=== PATIENT | female | born 1940 | race Hispanic/Latino ===

== ENCOUNTER 2016-10-09 00:53 | Inpatient (IN) | payer MEDICARE, BC ==
[2016-10-09 01:23] VITALS: BMI 25.0
[2016-10-09] MEDS ORDERED: Iohexol 240 (50 ml) PO STA (01:46)
[2016-10-09 02:56] LABS: BASO % 0.4 % (0.0-2.0); EOS # 0.2 K/uL (0.0-0.7); EOS % 3.2 % (0.0-4.0); HEMOGLOBIN 12.4 g/dL (12.0-16.0); LYMPH # 1.5 K/uL (1.0-4.3); LYMPH % 21.7 % (20.0-40.0); MEAN CELL VOLUME 87.3 fl (81.0-99.0); MEAN CORPUSCULAR HEMOGLOBIN 28.2 pg (27.0-31.0); MEAN CORPUSCULAR HGB CONC 32.3 g/dL (33.0-37.0); MEAN PLATELET VOLUME 8.4 fl (7.2-11.7); MONO # 0.6 K/uL (0.0-0.8); MONO % 8.6 % (0.0-10.0); NEUT # 4.6 K/uL (1.8-7.0); NEUT % 66.1 % (50.0-75.0); NRBC % 0.1 % (0.0-0.0); RBC 4.41 Mil/uL (3.80-5.20); RED CELL DISTRIBUTION WIDTH 15.2 % (11.5-14.5)
[2016-10-09] MEDS ORDERED: Iohexol 240 (50 ml) ONE (03:00)
--- NOTE | 2016-10-09 03:01 | ED PDOC ---
HPI: Psych/Substance Abuse Time Seen by Provider: 10/09/16 01:28 Chief Complaint (Nursing): Psychiatric Evaluation Chief Complaint (Provider): Psychiatric Evaluation History Per: Patient History/Exam Limitations: no limitations Current Symptoms Are (Timing): Still Present Suicide/Self Injury Attempted (Context): None Modifying Factor(s): None Associated Symptoms: Anxiety Additional History Per: Intermediate Additional Complaint(s): 76 year old female [facility] presents to ED for a psychiatric evaluation and has a past medical history of hypercholesterolemia, HTN, DM, hypothyroidism, and an extensive psychiatric history. long-term notes that patient was originally sent to [facility]), where she was medically cleared. Patient states that she has anxiety about her childhood and complains of abdominal pain. PCP: LUL Past Medical History Reviewed: Historical Data, Nursing Documentation, Vital Signs Vital Signs: Last Vital Signs Temp 98.2 F 10/09/16 01:23 Pulse 62 10/09/16 01:23 Resp 18 10/09/16 01:23 BP 165/74 H 10/09/16 01:23 Pulse Ox 95 10/09/16 01:23 - Medical History PMH: Anxiety, Bipolar Disorder, Depression, HTN, Hypercholesterolemia, Hyperlipidemia, Hypothyroidism, Kidney Stones, Chronic Kidney Disease Denies: No Chronic Diseases, Alzheimer's Disease, Anemia, Arthritis, Asthma, Bronchitis, Cardia Arrhythmia, CHF, COPD, Crohn's Disease, Dementia, Diabetes, Diverticulitis, Emphysema, Fibromyalgia, Fractures, Gastrointestinal Ulcer, Gall Bladder Disease, Hepatitis, HIV, Hyperthyroidism, Migraine, Mitral Valve Prolapse, Osteoporosis, Pancreatitis, Paranoia, Parkinson's Disease, Peripheral Edema, Pneumonia, Post Traumatic Stress Disorder, Rheumatoid Arthritis, Schizophrenia, Seizures, Sickle Cell Disease, Sexually Transmitted Disease, Sleep Apnea, TIA - Surgical History Surgical History: Appendectomy, Cholecystectomy Denies: Coronary Stent, Pacemaker - Family History Family History: States: No Known Family Hx - Social History Current smoker - smoking cessation education provided: No Alcohol: None Drugs: Denies - Immunization History Hx Tetanus Toxoid Vaccination: No - Home Medications Home Medications: Ambulatory Orders Medication Instructions Recorded Atorvastatin [Lipitor] 20 mg PO DAILY #14 tab 12/21/14 Levothyroxine [Synthroid] 125 mcg PO ACB 03/06/15 Benztropine [Cogentin] 1 tab PO BID 07/20/16 Dextran 70/Hypromellose 2 drop BOTHEYES BID 07/20/16 [Artificial Tears] FLUoxetine [Prozac] 1 cap PO DAILY 07/20/16 Lisinopril [Zestril] 1 tab PO DAILY 07/20/16 OLANZapine [Zyprexa] 1 tab PO DAILY 07/20/16 Pantoprazole [Protonix] 40 mg PO BID #35 ect 07/24/16 - Allergies Allergies/Adverse Reactions: Allergies Allergy/AdvReac Type Severity Reaction Status Date / Time codeine Allergy RASH Verified 04/05/15 06:07 Review of Systems ROS Statement: Except As Marked, All Systems Reviewed And Found Negative Gastrointestinal: Positive for: Abdominal Pain Psych: Positive for: Anxiety Physical Exam - Reviewed Nursing Documentation Reviewed: Yes Vital Signs Reviewed: Yes - Physical Exam Appears: Positive for: Non-toxic, No Acute Distress Head Exam: Positive for: ATRAUMATIC, NORMOCEPHALIC Skin: Positive for: Normal Color, Warm, Dry Eye Exam: Positive for: Normal appearance, EOMI, PERRL ENT: Positive for: Normal ENT Inspection Neck: Positive for: Normal, Painless ROM, Supple Cardiovascular/Chest: Positive for: Regular Rate, Rhythm. Negative for: Murmur Respiratory: Positive for: Normal Breath Sounds. Negative for: Respiratory Distress Gastrointestinal/Abdominal: Positive for: Soft, Tenderness (Minimal diffuse TTP ), Distended. Negative for: Normal Exam Back: Positive for: Normal Inspection Extremity: Positive for: Normal ROM. Negative for: Deformity Neurologic/Psych: Positive for: Alert, Oriented. Negative for: Motor/Sensory Deficits - Laboratory Results Result Diagrams: 10/09/16 02:07 10/09/16 02:07 - ECG O2 Sat by Pulse Oximetry: 95 (RA) Pulse Ox Interpretation: Normal Medical Decision Making Medical Decision Makin Initial impression: psychiatric eval with abdominal pain Rule out diverticulitis v colitis v volvulus Initial plan: * CTA A/P * Labs * Lact acid * Iohexol 50mL PO * UCx * UA Scribe Attestation: Documented by Alix Pelletier acting as a scribe for Derek Macdonald MD. Scribe Attestation: All medical record entries made by the Scribe were at my direction and personally dictated by me. I have reviewed the chart and agree that the record accurately reflects my personal performance of the history, physical exam, medical decision making, and the department course for this patient. I have also personally directed, reviewed, and agree with the discharge instructions and disposition. ED OBSERVATION Date of observation admission: 10/09/16 Time of observation admission: 01:45 - Observation admission statement Patient is being placed in observation because:: Pending CT - Goals of Observation Goals of observation are:: CT results - Progress Note Progress Note: 10/09/16 03:00 Patient resting comfortably. Vitals stable. 10/09/16 04:30 Patient resting comfortably. Vitals stable. 10/09/16 06:00 Patient resting comfortably. Vitals stable. 10/09/16 07:00 Patient will be signed out to Dr. Tobar pending CT ABD and crisis eval Disposition - Clinical Impression Clinical Impression: Depression - Patient ED Disposition Is Patient to be Admitted: No - Disposition Disposition: Transfer of Care Disposition Time: 07:00 Condition: STABLE Patient Signed Over To: Sunny Tobra III (at 0700) Handoff Comments: Pending CTA A/P and crisis evaluation - Pt Status Changed To: Hospital Disposition Of: Observation - POA Present On Arrival: None
[2016-10-09 04:12] LABS: ALBUMIN 3.6 g/dL (3.5-5.0)
[2016-10-09 04:15] LABS: ALB/GLOB RATIO 1.2 (1.0-2.1); AST/SGOT 29 U/L (14-36); GFR AFRICAN-AMERICAN > 60; GFR NON-AFRICAN AMERICAN > 60
[2016-10-09 04:16] LABS: ALT/SGPT 27 U/L (9-52); BLOOD UREA NITROGEN 13 mg/dl (7-17); CALCIUM 9.5 mg/dL (8.4-10.2)
[2016-10-09] MEDS ORDERED: Sodium Chloride 0.9% 50 ML IV ONE (06:28)
[2016-10-09] MEDS ORDERED: Iohexol 300 100 ML IJ ONE (06:28)
--- NOTE | 2016-10-09 07:10 | ED PDOC ---
- Laboratory Results Result Diagrams: 10/09/16 02:07 10/09/16 02:07 - ECG O2 Sat by Pulse Oximetry: 95 (RA) Medical Decision Making Medical Decision Making: recd 7am pending CT abd pelv for abd tenderness/ distension and crisis eval. CT: Accession No. : [id number] Patient Name / ID : SHAREE LAST / [id number] Exam Date : 10/09/2016 06:45:23 ( Approved ) Study Comment : Sex / Age : F / 76Y Creator : Jah Bo MD Dictator : Butt Trimmer : Senior Examiner : Jah Bo MD Approver2 : Report Date : 10/09/2016 07:11:00 My Comment : [facility] Division of Radiology [address] [place] [address] Tel. no. Patient Name: JAGDISH TOLLIVER Pt. Address: [address] [place] [address] Rec #: [id number] [place] [address]: MD Renae Derek Pt Order Location: [facility] : 1940 Female Age: 76 Order #: [id number] Reason for exam: abdominal pain and distension CT Scan ABD PELVIS IV CONTRAST ONLY Exam Date: 10/09/16 This imaging exam was performed at [facility] EXAM: CT Abdomen and Pelvis With Intravenous Contrast CLINICAL HISTORY: 76 years old, female; Pain; Abdominal pain; Generalized; Additional info: Abdominal pain and distension TECHNIQUE: Axial computed tomography images of the abdomen and pelvis with intravenous contrast. This CT exam was performed using one or more of the following dose reduction techniques: automated exposure control, adjustment of the mA and/or kV according to patient size, and/or use of iterative reconstruction technique. Coronal and sagittal reformatted images were created and reviewed. CONTRAST: 95 mL of [id number] administered intravenously. COMPARISON: No relevant prior studies available. FINDINGS: Limitations: Motion artifact - mild to moderate. Lower thorax: Minimal atelectasis/scarring. Coronary artery calcifications. Moderate-sized hiatal hernia. ABDOMEN: Liver: Unremarkable. No mass. Gallbladder and bile ducts: Cholecystectomy. No ductal dilation. Pancreas: No ductal dilation. No mass. Spleen: No splenomegaly. Adrenals: Hypertrophy of adrenal glands with small nodules, indeterminate by CT criteria. Kidneys and ureters: No mass. No hydronephrosis. Stomach and bowel: Few scattered diverticula within colon. No associated inflammatory stranding. No definite mural thickening. No obstruction. Appendix: No definite findings to suggest acute appendicitis. PELVIS: Bladder: Unremarkable. Reproductive: Small coarse calcification within uterus. ABDOMEN and PELVIS: Intraperitoneal space: No significant fluid collection. No free air. Bones/joints: Degenerative changes of spine. No acute fracture. Soft tissues: Tiny umbilical hernia containing fat. Vasculature: Mild atherosclerotic disease. No aneurysm. Lymph nodes: No pathologically enlarged lymph nodes. IMPRESSION: 1. Diverticulosis without definite CT evidence of diverticulitis. 2. Adrenal lesions, indeterminate. Recommend nonemergent MRI. 3. Incidental/non-acute findings are described above. Dictated By: Jah Bo MD Dictated Date/Time: 10/09/16710 Signed By: Jah Bo MD Date Signed: 710 Transcribed By: QUINCY Transcribe Date/Time : 10/09/16710 ACYP02/VRD Per crisis admit to [facility]. Father KWASI Darnell arrived in ED and signed consent for admission. Medically stable for the medical center admission. Weill require medical consult on floor for ongoing medical issues and CT adrenal findings. Disposition Counseled Patient/Family Regarding: Studies Performed, Diagnosis - Clinical Impression Clinical Impression: Bipolar 1 disorder, depressed - POA Present On Arrival: None - Disposition Disposition: Admitted as In-Patient Disposition Time: 10:30 Condition: STABLE
[2016-10-09] MEDS ORDERED: Alum-Mag Hydrox-Simethicone Susp (30 mL) PO PRN (12:34)
[2016-10-09] MEDS ORDERED: Bismuth Subsalicylate 262 mg/15 ml Sus (240 ml) PO PRN (12:34)
[2016-10-09] MEDS ORDERED: Magnesium Hydroxide Susp 30 ml UD PO PRN (12:34)
--- NOTE | 2016-10-09 13:51 | PCM.PSYCH ---
Initial Psychiatric Evaluation - Initial Psychiatric Evaluation Type of Admission: Voluntary Legal Status: DPOA Chief Complaint (in patient's own words): "I killed my babies" Patient's Reaction to Hospitalization: Patient is a poor historian, history obtained from the chart. HPI: 76 yo , , female referred to ED by [facility]. Patient expressed various delusions including that she killed her babies and that someone is going to kill her now. Pt appeared to be somewhat depressed. Pt denied SI/HI. Pt appeared to be delusional, but denied A/V/T hallucinations. Pt is oriented x3. formula room worker spoke with Father Mann, , for collateral information. According to Father Mann, pt has been admitted in the past for the same incident , and her concern is primarily about her babies. Father Mann has known her for at least 10 years. Pts 2 years ago from Alzheimer s disease. Pts brothers currently lives in [place] and she has no communication with them. Pt has a Psychiatric history, and she has battled with Depression. Pt was under the care of Dr. Perez in the past. Pt has been living in an Assisted Living for the past year. Pt has been hospitalized at least 4-5x. PPHx: Pt was hospitalized in [facility] at least 4x between [id number]. Current medications: Benztropine 0.5 mg 2x a day, Fluoxetine 20 mg 1x a day, and Zyprexa 10 mg at bedtime. H/o bipolar disorder as per the chart. PMHx: Pt has history of hypothyroidism, and has an ulcer in her esophagus. SHx: , +Bachelor's Degree, NO drugs/ etoh/ cig. All: Codeine Current Medications: Active Medications Generic Name Dose Route Start Last Admin Trade Name Freq PRN Reason Stop Dose Admin Acetaminophen 650 mg 10/09/16 12:34 Tylenol 325mg Tab PO Q4 PRN Pain, moderate (4-7) Al Hydrox/Mg Hydrox/Simethicone 30 ml 10/09/16 12:34 Maalox Plus 30 Ml PO Q4 PRN Dyspepsia Bismuth Subsalicylate 524 mg 10/09/16 12:34 Pepto-Bismol PO Q4 PRN Diarrhea Fluoxetine HCl 20 mg 10/10/16 09:00 Prozac PO DAILY NIKKI Lorazepam 0.5 mg 10/09/16 12:34 Ativan PO 10/23/16 12:35 HS PRN Insomnia Lorazepam 0.5 mg 10/09/16 12:34 Ativan PO 10/23/16 12:35 Q6 PRN Anixety/Agitation Magnesium Hydroxide 30 ml 10/09/16 12:34 Milk Of Magnesia PO HS PRN Constipation Olanzapine 10 mg 10/09/16 22:00 Zyprexa PO HS NIKKI Olanzapine 2.5 mg 10/09/16 22:00 Zyprexa PO HS NIKKI Past Psychiatric History - Past Psychiatric History Previous Treatment History: Inpatient Pertinent Medical Hx (Current Medical&Sleep Prob, Allergies): Allergies Allergy/AdvReac Type Severity Reaction Status Date / Time codeine Allergy RASH Verified 04/05/15 06:07 Levothyroxine [Synthroid] 125 mcg PO ACB 03/06/15 FLUoxetine [Prozac] 1 cap PO DAILY 07/20/16 Lisinopril [Zestril] 1 tab PO DAILY 07/20/16 OLANZapine [Zyprexa] 1 tab PO DAILY 07/20/16 Pantoprazole [Protonix] 40 mg PO DAILY 10/09/16 Review of Systems - Psychiatric Psychiatric: As Per HPI, Behavioral Changes, Difficulty Concentrating, Paranoia , Other (Delusions) Mental Status Examination - Personal Presentation Personal Presentation: Looks stated age - Affect Affect: Constricted, Other (Distressed by delusions) - Motor Activity Motor Activity: Calm - Reliability in Providing Information Reliability in Providing Information: Poor, due to alteration in thoughts, Poor , due to cognitve impairment - Speech Speech: Coherent - Mood Mood: Anxious - Formal Thought Process Formal Thought Process: Delusions, Paranoia, Loosening of associations, Flight of ideas - Obsessions/Compulsions Obsessions: No Compulsions: No - Cognitive Functions Orientation: Person, Place, Situation, Time Sensorium: Alert Judgement: Imparied, as evidence by: Lack of insight into illness Memory: Recent impaired, as evidence by: Inability to recall events of the day, Recent imparied as evidence by:Inability to complete 3/3 object recall - Risk Risk: Diminished functioning - Strength & Assets Inventory Strength & Assets Inventory: Cooperative DSM 5 DX - DSM 5 DSM 5 Diagnosis: Bipolar Disorder w/ psychotic features - Recommended/Plan of Treatment Treatment Recommendations and Plan of Treatment: Bipolar Disorder w/ psychotic features -Admit to psychiatry -Continue Prozac 20 mg PO Daily -Increase Zyprexa to 12.5 mg PO HS -Continue Cogentin 0.5 mg PO Q12 hr -Medicine consult for chronic medical conditions -Disposition planning Projected ELOS: 5-7 days Discharge Plan and Discharge Criteria: Discharge when psychiatrically stable - Smoking Cessation Smoking Cessation Initiated: No Reason for not providing: Not indicated
[2016-10-09 15:27] LABS: SQUAMOUS EPITHIAL < 1 /hpf (0-5); URINE BACTERIA RARE (<OCC); URINE BILIRUBIN NEGATIVE (NEGATIVE); URINE BLOOD NEGATIVE (NEGATIVE); URINE CLARITY CLEAR (Clear); URINE COLOR YELLOW (YELLOW); URINE GLUCOSE (UA) NEG (Normal); URINE LEUKOCYTE ESTERASE NEG Leu/uL (Negative); URINE NITRATE NEGATIVE (NEGATIVE); URINE PROTEIN NEGATIVE (NEGATIVE); URINE UROBILINOGEN 0.2-1.0 mg/dL (0.2-1.0)
[2016-10-10 08:17] LABS: ALB/GLOB RATIO 1.4 (1.0-2.1); ALBUMIN 3.8 g/dL (3.5-5.0); ALT/SGPT 29 U/L (9-52); AST/SGOT 27 U/L (14-36); BLOOD UREA NITROGEN 11 mg/dl (7-17); CALCIUM 9.4 mg/dL (8.4-10.2); GFR AFRICAN-AMERICAN > 60; GFR NON-AFRICAN AMERICAN > 60; HDL CHOLESTEROL 53 MG/DL (30-70)
[2016-10-10 08:30] LABS: LDL CHOLESTEROL 79 mg/dL (0-129)
--- NOTE | 2016-10-10 11:44 | CP.PCM.CON ---
History of Present Illness - History of Present Illness History of Present Illness: Reason for Consult: per hospital protocol HPI: 76 F PMH HTN, dyslipidemia, hypothyroidism is admitted to [facility] for depression and delusions, per chart review. When asked why she is admitted, or what brought her to the emergency room, patient states she does not know why she is here. She does however have periods of lucency, at which times she states she does not want to talk about it. Patient otherwise denies any other complaints at this time. HD stable, NAD. ROS: pertinent positives in HPI, all other systems are negative by me PMH: Bipolar disorder, Dyslipidemia, HTN, hypothyroidism PSH: Appendectomy Medications: as below Allergies: Codeine (Rash) FH: Father - heart disease SH: * EtOH: denies use * Tobacco: denies use * Drugs: denies use * Occupation: retired Temp Pulse Resp BP Pulse Ox 97.1 F L 82 18 145/84 97 10/10/16 06:00 10/10/16 06:00 10/10/16 06:00 10/10/16 06:00 10/09/16 11:32 GEN: WDWN, ALERT, COOPERATIVE HEENT: NCAT, PERRL, EOMI HEART: +S1+S2, RRR NO MRG LUNG: CTAB, NO WRR ABD: SOFT BSX4 NT ND NO HSM NO MASS EXT: WARM, WELL PERFUSED NEURO: AA0X3, STRENGTH AND SENSATION EQUAL AND BILATERAL SKIN: WARM DRY PSYCH: NORMAL MOOD NORMAL AFFECT 10/09/16 02:07 10/10/16 07:00 MEDICATIONS 10/09/16 12:34 Acetaminophen [Tylenol 325mg tab] 650 mg PO Q4 PRN Aluminum Hydroxide/Magnesium [Maalox Plus 30 ml] 30 ml PO Q4 PRN Bismuth Subsalicylate [Pepto-Bismol] 524 mg PO Q4 PRN LORazepam [Ativan] 0.5 mg PO HS PRN LORazepam [Ativan] 0.5 mg PO Q6 PRN Magnesium Hydroxide [Milk Of Magnesia] 30 ml PO HS PRN 10/09/16 21:00 Benztropine [Cogentin] 0.5 mg PO Q12 10/09/16 22:00 OLANZapine [ZyPREXA] 10 mg PO HS OLANZapine [ZyPREXA] 2.5 mg PO HS 10/10/16 09:00 FLUoxetine [Prozac] 20 mg PO DAILY ASSESSMENT AND PLAN 76 F PMH HTN, dyslipidemia, hypothyroidism is admitted to [facility] for depression and delusions, per chart review. When asked why she is admitted, or what brought her to the emergency room, patient states she does not know why she is here. She does however have periods of lucency, at which times she states she does not want to talk about it. Patient otherwise denies any other complaints at this time. HD stable, NAD. Hypothyroid cont synthroid Hypertension cont lisinopril Depression and delusions management per psychiatry Past Patient History - Infectious Disease Hx of Infectious Diseases: None - Tetanus Immunizations Tetanus Immunization: Unknown - Past Social History Alcohol: None Drugs: Denies - CARDIAC Hx Cardiac Disorders: Yes Hx Hypertension: Yes Other/Comment: Hx one cardiac stent - PULMONARY Hx Respiratory Disorders: No Hx Tuberculosis: No - NEUROLOGICAL Hx Neurological Disorder: No HX Cerebrovascular Accident: No Hx Seizures: No - HEENT Hx HEENT Problems: No Other/Comment: Wears glasses near/far - RENAL Hx Chronic Kidney Disease: Yes Hx Kidney Stones: Yes - ENDOCRINE/METABOLIC Hx Endocrine Disorders: Yes Hx Hypothyroidism: Yes - HEMATOLOGICAL/ONCOLOGICAL Hx Cancer: No Hx Human Immunodeficiency Virus (HIV): No - INTEGUMENTARY Hx Dermatological Problems: No - MUSCULOSKELETAL/RHEUMATOLOGICAL Hx Arthritis: No Hx Falls: No Hx Fractures: No - GASTROINTESTINAL Hx Gastrointestinal Disorders: Yes Other/Comment: esophageal ulcer - GENITOURINARY/GYNECOLOGICAL Hx Genitourinary Disorders: Yes Hx Sexually Transmitted Disorders: No Hx Urinary Tract Infection: Yes - PSYCHIATRIC Hx Anxiety: Yes Hx Bipolar Disorder: Yes Hx Depression: Yes Hx Sexual Abuse: No Hx Substance Use: No - SURGICAL HISTORY Hx Coronary Stent: Yes - ANESTHESIA Hx Anesthesia: No Meds Allergies/Adverse Reactions: Allergies Allergy/AdvReac Type Severity Reaction Status Date / Time codeine Allergy RASH Verified 04/05/15 06:07 - Medications Medications: Current Medications Acetaminophen (Tylenol 325mg Tab) 650 mg PO Q4 PRN PRN Reason: Pain, moderate (4-7) Al Hydrox/Mg Hydrox/Simethicone (Maalox Plus 30 Ml) 30 ml PO Q4 PRN PRN Reason: Dyspepsia Benztropine Mesylate (Cogentin) 0.5 mg PO Q12 NIKKI Last Admin: 10/10/16 08:36 Dose: 0.5 mg Bismuth Subsalicylate (Pepto-Bismol) 524 mg PO Q4 PRN PRN Reason: Diarrhea Fluoxetine HCl (Prozac) 20 mg PO DAILY [facility] Last Admin: 10/10/16 08:36 Dose: 20 mg Lorazepam (Ativan) 0.5 mg PO HS PRN PRN Reason: Insomnia Stop: 10/23/16 12:35 Lorazepam (Ativan) 0.5 mg PO Q6 PRN PRN Reason: Anixety/Agitation Stop: 10/23/16 12:35 Magnesium Hydroxide (Milk Of Magnesia) 30 ml PO HS PRN PRN Reason: Constipation Olanzapine (Zyprexa) 10 mg PO HS [facility] Last Admin: 10/09/16 21:12 Dose: 10 mg Olanzapine (Zyprexa) 2.5 mg PO HS [facility] Last Admin: 10/09/16 21:12 Dose: 2.5 mg Results - Vital Signs Recent Vital Signs: Last Vital Signs Temp 97.1 F L 10/10/16 06:00 Pulse 82 10/10/16 06:00 Resp 18 10/10/16 06:00 BP 145/84 10/10/16 06:00 Pulse Ox 97 10/09/16 11:32 - Labs Result Diagrams: 10/09/16 02:07 10/10/16 07:00 Labs: Laboratory Results - last 24 hr 10/09/16 10/10/16 10/10/16 14:00 07:00 07:00 Sodium 135 Potassium 4.2 Chloride 100 Carbon Dioxide 28 Anion Gap 12 BUN 11 Creatinine 0.7 Est GFR ( Amer) > 60 Est GFR (Non-Af Amer) > 60 Random Glucose 113 H Hemoglobin A1c 6.3 Calcium 9.4 Total Bilirubin 0.5 AST 27 ALT 29 Alkaline Phosphatase 113 Total Protein 6.5 Albumin 3.8 Globulin 2.7 Albumin/Globulin Ratio 1.4 Triglycerides 91 D Cholesterol 158 LDL Cholesterol Direct 79 HDL Cholesterol 53 Vitamin B12 277 Thyroxine (T4) 12.0 H TSH 3rd Generation 1.14 Urine Color Yellow Urine Clarity Clear Urine pH 6.0 Ur Specific [employer] 1.030 Urine Protein Negative Urine Glucose (UA) Neg Urine Ketones Negative Urine Blood Negative Urine Nitrate Negative Urine Bilirubin Negative Urine Urobilinogen 0.2-1.0 Ur Leukocyte Esterase Neg Urine RBC (Auto) 1 Urine Microscopic WBC 1 Ur Squamous Epith Cells < 1 Urine Bacteria Rare
--- NOTE | 2016-10-10 15:11 | PCM.PYCHPN ---
Psychiatric Progress Note - Psychiatric Progress Note Patient seen today, length of contact: Patient evaluated, case discussed with team, chart reviewed, 35 min Patient Chief Complaint: "They are killing me" Problems Identified/Issues Discussed: Patient believes she is being murdered. She was paranoid and evasive when asked who or how. She continues to be acutely delusional with poor insight. She denies AH/VH/SI/HI. Medication Change: No Medical Record Reviewed: Yes Consults ordered or reviewed: Medicine consult appreciated Mental Status Examination - Cognitive Function Orientation: Person, Place, Situation, Time Memory: Impaired Association: Loose - Mood Mood: Anxious - Affect Affect: Constricted, Other (Distressed by delusions) - Formal Thought Process Formal Thought Process: Delusions, Paranoia, Loosening of associations, Flight of ideas Psychotic Thoughts and Behaviors: +Paranoid delusions - Suicidal Ideation Suicidal Ideation: No - Homicidal Ideation Homicidal Ideation: No Goal/Treatment Plan - Goal/Treatment Plan Need for Continued Stay: Remain at risks for inpatient hospitalization, Discharge may exacerbated symptoms, Severe functional impairment Progress Toward Problem(s) and Goals/Treatment Plan: Bipolar Disorder w/ psychotic features; patient continues to be paranoid and delusions w/ poor insight. -Continue Prozac 20 mg PO Daily -Continue Zyprexa 12.5 mg PO HS; will consider further titration; POA in agreement with medications modifications as clinically indicated -Continue Cogentin 0.5 mg PO Q12 hr -Medicine consult appreciated -Disposition planning Estimated Date of D/C: 10/15/16 - Smoking Cessation Smoking Cessation Initiated: No Reason for not providing: Not indicated
[2016-10-10] MEDS: Levothyroxine 125 MCG TAB PO SCH (16:55)
[2016-10-10 17:32] LABS: FOLATE 10.1 ng/mL
[2016-10-11] MEDS: Levothyroxine 125 MCG TAB PO SCH (09:10)
--- NOTE | 2016-10-11 09:43 | PCM.PYCHPN ---
Psychiatric Progress Note - Psychiatric Progress Note Patient seen today, length of contact: Patient evaluated, case discussed with team, chart reviewed, 35 min Patient Chief Complaint: "I'm such a bad person, I killed my babies" Problems Identified/Issues Discussed: Patient is very upset this morning due to her delusions that she killed her children. She is feeling depressed and guilty due to her delusions. She continues to have poor insight. She denies AH/VH/SI/HI. Medication Change: Yes (Increase Zyprexa to 15 mg PO HS) Medical Record Reviewed: Yes Consults ordered or reviewed: Medicine consult appreciated Mental Status Examination - Cognitive Function Orientation: Person, Place, Situation, Time Memory: Impaired Attention: Poor Concentration: Poor Association: Loose Fund of Knowledge: Poor - Mood Mood: Depressed, Anxious - Affect Affect: Constricted, Depressed, Other (Distressed by delusions) - Speech Speech: Soft - Formal Thought Process Formal Thought Process: Delusions, Paranoia, Loosening of associations, Flight of ideas Psychotic Thoughts and Behaviors: +Paranoid delusions - Suicidal Ideation Suicidal Ideation: No - Homicidal Ideation Homicidal Ideation: No Goal/Treatment Plan - Goal/Treatment Plan Need for Continued Stay: Remain at risks for inpatient hospitalization, Discharge may exacerbated symptoms, Severe functional impairment Progress Toward Problem(s) and Goals/Treatment Plan: Bipolar Disorder w/ psychotic features; patient continues to be paranoid and delusions w/ poor insight. -Continue Prozac 20 mg PO Daily -Increase Zyprexa to 15 mg PO HS -POA in agreement with medications modifications as clinically indicated -Continue Cogentin 0.5 mg PO Q12 hr -Medicine consult appreciated -Disposition planning Estimated Date of D/C: 10/15/16
[2016-10-11] MEDS: Divalproex 250 mg DR(BID formulation) PO SCH (17:59)
[2016-10-12] MEDS: Levothyroxine 125 MCG TAB PO SCH (09:21)
[2016-10-12] MEDS: Divalproex 250 mg DR(BID formulation) PO SCH ×2 (09:26→17:00)
--- NOTE | 2016-10-12 11:07 | PCM.PYCHPN ---
Psychiatric Progress Note - Psychiatric Progress Note Patient seen today, length of contact: Patient evaluated, case discussed with team, chart reviewed, 35 min Patient Chief Complaint: "I'm such a bad person, I killed my babies" Problems Identified/Issues Discussed: Patient continue to be upset this morning due to her delusions that she killed her children. She is feeling depressed and guilty due to her delusions. She continues to have poor insight. She denies AH/VH/SI/HI. Medication Change: Yes (Start Depakote 250 mg PO BID) Medical Record Reviewed: Yes Mental Status Examination - Cognitive Function Orientation: Person, Place, Situation, Time Memory: Impaired Attention: Poor Concentration: Poor Association: Loose Fund of Knowledge: Poor Decription of patient's judgement and insights: Poor I/J - Mood Mood: Depressed, Anxious - Affect Affect: Constricted, Depressed, Other (Distressed by delusions) - Speech Speech: Soft - Formal Thought Process Formal Thought Process: Delusions, Paranoia, Loosening of associations, Flight of ideas Psychotic Thoughts and Behaviors: +Paranoid delusions - Suicidal Ideation Suicidal Ideation: No - Homicidal Ideation Homicidal Ideation: No Goal/Treatment Plan - Goal/Treatment Plan Need for Continued Stay: Remain at risks for inpatient hospitalization, Discharge may exacerbated symptoms, Severe functional impairment Progress Toward Problem(s) and Goals/Treatment Plan: Bipolar Disorder w/ psychotic features; patient continues to be paranoid and delusions w/ poor insight. -Continue Prozac 20 mg PO Daily -Continue Zyprexa 15 mg PO HS -POA in agreement with medications modifications as clinically indicated -Continue Cogentin 0.5 mg PO Q12 hr -Start Depakote 250 mg PO BID; check VPA Saturday -Medicine consult appreciated -Disposition planning Estimated Date of D/C: 10/16/16
[2016-10-13] MEDS: Divalproex 250 mg DR(BID formulation) PO SCH ×2 (09:42→16:18)
[2016-10-13] MEDS: Levothyroxine 125 MCG TAB PO SCH (09:43)
--- NOTE | 2016-10-13 10:06 | PCM.PYCHPN ---
Psychiatric Progress Note - Psychiatric Progress Note Patient seen today, length of contact: Patient evaluated, case discussed with team, chart reviewed, 35 min Patient Chief Complaint: pt still very delusional and believes she need to be euthanized and has poor insight and poor judgement Medication Change: Yes (Start Depakote 250 mg PO BID) Medical Record Reviewed: Yes Mental Status Examination - Cognitive Function Orientation: Person, Place, Situation, Time Memory: Impaired Attention: Poor Concentration: Poor Association: Loose Fund of Knowledge: Poor - Mood Mood: Depressed, Anxious - Affect Affect: Constricted, Depressed, Other (Distressed by delusions) - Speech Speech: Soft - Formal Thought Process Formal Thought Process: Delusions, Paranoia, Loosening of associations, Flight of ideas - Suicidal Ideation Suicidal Ideation: No - Homicidal Ideation Homicidal Ideation: No Goal/Treatment Plan - Goal/Treatment Plan Need for Continued Stay: Remain at risks for inpatient hospitalization, Discharge may exacerbated symptoms, Severe functional impairment, Other Progress Toward Problem(s) and Goals/Treatment Plan: will continue to stabilize with depakote and engage in therapy Estimated Date of D/C: 10/16/16
[2016-10-14] MEDS: Levothyroxine 125 MCG TAB PO SCH (10:53)
[2016-10-14] MEDS: Divalproex 250 mg DR(BID formulation) PO SCH ×2 (10:58→17:39)
[2016-10-15] MEDS: Divalproex 250 mg DR(BID formulation) PO SCH ×2 (09:00→16:32)
[2016-10-15] MEDS: Levothyroxine 125 MCG TAB PO SCH (09:01)
--- NOTE | 2016-10-15 10:00 | PCM.PYCHPN ---
Psychiatric Progress Note - Psychiatric Progress Note Patient seen today, length of contact: Patient evaluated, case discussed with team, chart reviewed, 35 min Patient Chief Complaint: "I deserve to be killed." Problems Identified/Issues Discussed: Patient continue to be upset this morning due to her delusions that she has done bad things to people and believes she should be killed as a punishment. Patient started on Cipro for UTI over the weekend. She is feeling depressed and guilty due to her delusions. She continues to have poor insight. She denies AH/VH/SI/HI. Diagnostic Results: 10/15/16- VPA 39.6 Medication Change: No Medical Record Reviewed: Yes Mental Status Examination - Cognitive Function Orientation: Person, Place, Situation, Time Memory: Impaired Attention: Poor Concentration: Poor Association: Loose Fund of Knowledge: Poor Decription of patient's judgement and insights: Poor insight/judgment - Mood Mood: Depressed, Anxious - Affect Affect: Constricted, Depressed, Other (Distressed by delusions) - Speech Speech: Soft - Formal Thought Process Formal Thought Process: Delusions, Paranoia, Loosening of associations, Flight of ideas Psychotic Thoughts and Behaviors: +Delusions, paranoia - Suicidal Ideation Suicidal Ideation: No - Homicidal Ideation Homicidal Ideation: No Goal/Treatment Plan - Goal/Treatment Plan Need for Continued Stay: Remain at risks for inpatient hospitalization, Discharge may exacerbated symptoms, Severe functional impairment Progress Toward Problem(s) and Goals/Treatment Plan: Bipolar Disorder w/ psychotic features; patient continues to be paranoid and delusions w/ poor insight; patient currently has a UTI which could be contributing to her psychosis. -Continue Prozac 20 mg PO Daily -Continue Zyprexa 15 mg PO HS -POA in agreement with medications modifications as clinically indicated -Continue Cogentin 0.5 mg PO Q12 hr -Continue Depakote 250 mg PO BID; VPA 39.6 on 10/15/16 -Medicine consult appreciated -Disposition planning Estimated Date of D/C: 10/19/16
[2016-10-16] MEDS: Divalproex 250 mg DR(BID formulation) PO SCH ×2 (08:49→17:30)
[2016-10-16] MEDS: Levothyroxine 125 MCG TAB PO SCH (08:50)
--- NOTE | 2016-10-16 09:06 | PCM.PYCHPN ---
Psychiatric Progress Note - Psychiatric Progress Note Patient seen today, length of contact: Patient evaluated, case discussed with team, chart reviewed, 35 min Patient Chief Complaint: "I did bad things" Problems Identified/Issues Discussed: Patient continues to be upset this morning due to her delusions that she has done bad things to people. She continues to feel depressed and guilty due to her delusions. She continues to have poor insight. She denies AH/VH/SI/HI. Diagnostic Results: 10/15/16- VPA 39.6 Medication Change: No Medical Record Reviewed: Yes Mental Status Examination - Cognitive Function Orientation: Person, Place, Situation, Time Memory: Impaired Attention: Poor Concentration: Poor Association: Loose Fund of Knowledge: Poor Decription of patient's judgement and insights: Poor insight/judgment - Mood Mood: Depressed, Anxious - Affect Affect: Constricted, Depressed, Other (Distressed by delusions) - Speech Speech: Soft - Formal Thought Process Formal Thought Process: Delusions, Paranoia, Loosening of associations, Flight of ideas Psychotic Thoughts and Behaviors: +Delusions, paranoia - Suicidal Ideation Suicidal Ideation: No - Homicidal Ideation Homicidal Ideation: No Goal/Treatment Plan - Goal/Treatment Plan Need for Continued Stay: Remain at risks for inpatient hospitalization, Discharge may exacerbated symptoms, Severe functional impairment Progress Toward Problem(s) and Goals/Treatment Plan: Bipolar Disorder w/ psychotic features; patient continues to be paranoid and delusional w/ poor insight; patient currently has a UTI which could be contributing to her psychosis. -Continue Prozac 20 mg PO Daily -Increase Zyprexa to 20 mg PO HS -POA in agreement with medications modifications as clinically indicated -Continue Cogentin 0.5 mg PO Q12 hr -Continue Depakote 250 mg PO BID; VPA 39.6 on 10/15/16 -Medicine consult appreciated -Disposition planning Estimated Date of D/C: 10/19/16
[2016-10-16] MEDS ORDERED: Pantoprazole 40 mg EC Tab PO SCH (22:00)
[2016-10-17] MEDS: Sodium Chloride 0.9% 1,000 ML IV SCH ×3 (00:36→16:37)
--- NOTE | 2016-10-17 07:54 | CP.PCM.PN ---
Subjective - Date & Time of Evaluation Date of Evaluation: 10/16/16 Time of Evaluation: 22:00 - Subjective Subjective: S: Pt had several large bouts of vomiting with possible blood. PT only real complaint was nausea and vomiting. PT denies any other complaints at this time. She looked mildly dehydrated and was a difficult "stick" for iv access. After several attempts she finally received iv zofran and iv fluids along with protonix. Unsure if any blood in vomit. O: pt looks well in no obvious distress, dehydrated but otherwise denies any other complaints at this time. Vital signs: 150/92 , RR- 16, P- 80, spo2- 99 % A: Pt with large bouts of nausea and vomiting with questionable hematemesis, dehydrated from poor oral intake with normal vital signs. no further bouts of n /v after my assessment P: - repeat CBC s/p hydration - iv fluid with normal saline - iv protonix - iv zofran - will re assess once bloodwork becomes available in am - pt sleeping with no further episodes of vomiting Objective - Vital Signs/Intake and Output Vital Signs (last 24 hours): Temp Pulse Resp BP Pulse Ox 97.5 F L 80 20 105/60 91 L 10/17/16 05:54 10/17/16 05:54 10/17/16 05:54 10/17/16 05:54 10/11/16 09:49 - Medications Medications: Current Medications Acetaminophen (Tylenol 325mg Tab) 650 mg PO Q4 PRN PRN Reason: Pain, moderate (4-7) Last Admin: 10/16/16 01:37 Dose: 650 mg Al Hydrox/Mg Hydrox/Simethicone (Maalox Plus 30 Ml) 30 ml PO Q4 PRN PRN Reason: Dyspepsia Benztropine Mesylate (Cogentin) 0.5 mg PO Q12 [facility] Last Admin: 10/16/16 22:56 Dose: Not Given Bismuth Subsalicylate (Pepto-Bismol) 524 mg PO Q4 PRN PRN Reason: Diarrhea Ciprofloxacin (Cipro) 500 mg PO Q12 [facility] Last Admin: 10/16/16 22:56 Dose: Not Given Divalproex Sodium (Depakote Dr(*Bid*)) 250 mg PO BID [facility] Last Admin: 10/16/16 17:30 Dose: 250 mg Fluoxetine HCl (Prozac) 20 mg PO DAILY [facility] Last Admin: 10/16/16 08:50 Dose: 20 mg Sodium Chloride (Sodium Chloride 0.9%) 1,000 mls @ 125 mls/hr IV .Q8H [facility] Stop: 10/17/16 23:24 Last Admin: 10/17/16 00:36 Dose: 125 mls/hr Levothyroxine Sodium (Synthroid) 125 mcg PO ACB [facility] Last Admin: 10/16/16 08:50 Dose: 125 mcg Lisinopril (Zestril) 20 mg PO DAILY [facility] Last Admin: 10/16/16 17:30 Dose: 20 mg Lorazepam (Ativan) 0.5 mg PO HS PRN PRN Reason: Insomnia Stop: 10/23/16 12:35 Lorazepam (Ativan) 0.5 mg PO Q6 PRN PRN Reason: Anixety/Agitation Stop: 10/23/16 12:35 Magnesium Hydroxide (Milk Of Magnesia) 30 ml PO HS PRN PRN Reason: Constipation Olanzapine (Zyprexa) 20 mg PO HS [facility] Last Admin: 10/17/16 00:40 Dose: Not Given Ondansetron HCl (Zofran Inj) 4 mg IVP Q6 PRN PRN Reason: Nausea/Vomiting Last Admin: 10/16/16 23:39 Dose: 4 mg Pantoprazole Sodium (Protonix Inj) 40 mg IVP DAILY [facility] - Labs Labs: 10/10/16 07:00
[2016-10-17 07:55] LABS: BASO % 0.2 % (0.0-2.0); EOS # 0.1 K/uL (0.0-0.7); EOS % 0.7 % (0.0-4.0); LYMPH # 0.9 K/uL (1.0-4.3); LYMPH % 10.8 % (20.0-40.0); MEAN CELL VOLUME 87.2 fl (81.0-99.0); MEAN CORPUSCULAR HEMOGLOBIN 28.3 pg (27.0-31.0); MEAN CORPUSCULAR HGB CONC 32.5 g/dL (33.0-37.0); MEAN PLATELET VOLUME 8.1 fl (7.2-11.7); MONO % 12.1 % (0.0-10.0); NEUT # 6.4 K/uL (1.8-7.0); NEUT % 76.2 % (50.0-75.0); RBC 4.25 Mil/uL (3.80-5.20); RED CELL DISTRIBUTION WIDTH 15.4 % (11.5-14.5); WHITE BLOOD COUNT 8.4 K/uL (4.8-10.8)
[2016-10-17 08:26] LABS: BLOOD UREA NITROGEN 17 mg/dl (7-17); CALCIUM 9.2 mg/dL (8.4-10.2); GFR AFRICAN-AMERICAN > 60; GFR NON-AFRICAN AMERICAN > 60
[2016-10-17] MEDS: Divalproex 250 mg DR(BID formulation) PO SCH (09:16)
[2016-10-17] MEDS: Levothyroxine 125 MCG TAB PO SCH (09:16)
--- NOTE | 2016-10-17 09:51 | PCM.PYCHPN ---
Psychiatric Progress Note - Psychiatric Progress Note Patient seen today, length of contact: Patient evaluated, case discussed with team, chart reviewed, 35 min Patient Chief Complaint: "I did bad things" Problems Identified/Issues Discussed: Patient vomitted yesterday, was seen by medicine consult (see below). Patient is excessively sleepy during the day for the past few days, could be secondary to Depakote, which will be stopped at this time. She continues to delusional and depressed due to her delusions that she has done something terribly bad. She continues to have poor insight. She denies AH/VH/SI/HI. Diagnostic Results: 10/15/16- VPA 39.6 Medication Change: Yes (Stop Depakote) Medical Record Reviewed: Yes Consults ordered or reviewed: Medicine consult: S: Pt had several large bouts of vomiting with possible blood. PT only real complaint was nausea and vomiting. PT denies any other complaints at this time. She looked mildly dehydrated and was a difficult "stick" for iv access. After several attempts she finally received iv zofran and iv fluids along with protonix. Unsure if any blood in vomit. O: pt looks well in no obvious distress, dehydrated but otherwise denies any other complaints at this time. Vital signs: 150/92 , RR- 16, P- 80, spo2- 99 % A: Pt with large bouts of nausea and vomiting with questionable hematemesis, dehydrated from poor oral intake with normal vital signs. no further bouts of n /v after my assessment P: - repeat CBC s/p hydration - iv fluid with normal saline - iv protonix - iv zofran - will re assess once bloodwork becomes available in am - pt sleeping with no further episodes of vomiting Mental Status Examination - Cognitive Function Orientation: Person, Place, Situation, Time Memory: Impaired Attention: Poor Concentration: Poor Association: Loose Fund of Knowledge: Poor Decription of patient's judgement and insights: Poor insight/judgment - Mood Mood: Depressed, Anxious - Affect Affect: Constricted, Depressed, Other (Distressed by delusions) - Speech Speech: Soft - Formal Thought Process Formal Thought Process: Delusions, Paranoia, Loosening of associations, Flight of ideas Psychotic Thoughts and Behaviors: +Delusions, paranoia - Suicidal Ideation Suicidal Ideation: No - Homicidal Ideation Homicidal Ideation: No Goal/Treatment Plan - Goal/Treatment Plan Need for Continued Stay: Remain at risks for inpatient hospitalization, Discharge may exacerbated symptoms, Severe functional impairment Progress Toward Problem(s) and Goals/Treatment Plan: Bipolar Disorder w/ psychotic features; patient continues to be paranoid and delusional w/ poor insight; patient currently has a UTI which could be contributing to her psychosis. -Continue Prozac 20 mg PO Daily -Continue Zyprexa 20 mg PO HS -POA in agreement with medications modifications as clinically indicated -Continue Cogentin 0.5 mg PO Q12 hr -Stop Depakote 250 mg PO BID as it may be causes excessive sedation -Medicine consult appreciated -Disposition planning Estimated Date of D/C: 10/22/16
[2016-10-18] MEDS: Levothyroxine 125 MCG TAB PO SCH (08:50)
--- NOTE | 2016-10-18 10:06 | PCM.PYCHPN ---
Psychiatric Progress Note - Psychiatric Progress Note Patient seen today, length of contact: Patient evaluated, case discussed with team, chart reviewed, 35 min Patient Chief Complaint: "I did bad things" Problems Identified/Issues Discussed: Patient is more alert, but continues to be sleepy during the day at times. She continues to delusional and depressed due to her delusions that she has done something terribly bad. She continues to have poor insight. She denies AH /VH/SI/HI. Diagnostic Results: 10/15/16- VPA 39.6 Medication Change: No Medical Record Reviewed: Yes Mental Status Examination - Cognitive Function Orientation: Person, Place, Situation, Time Memory: Impaired Attention: Poor Concentration: Poor Association: Loose Fund of Knowledge: Poor Decription of patient's judgement and insights: Poor insight/judgment - Mood Mood: Depressed, Anxious - Affect Affect: Constricted, Depressed, Other (Distressed by delusions) - Speech Speech: Soft - Formal Thought Process Formal Thought Process: Delusions, Paranoia, Loosening of associations, Flight of ideas Psychotic Thoughts and Behaviors: +Delusions, paranoia - Suicidal Ideation Suicidal Ideation: No - Homicidal Ideation Homicidal Ideation: No Goal/Treatment Plan - Goal/Treatment Plan Need for Continued Stay: Remain at risks for inpatient hospitalization, Discharge may exacerbated symptoms, Severe functional impairment Progress Toward Problem(s) and Goals/Treatment Plan: Bipolar Disorder w/ psychotic features; patient continues to be paranoid and delusional w/ poor insight; patient currently has a UTI which could be contributing to her psychosis. -Continue Prozac 20 mg PO Daily -Continue Zyprexa 20 mg PO HS -POA in agreement with medications modifications as clinically indicated -Continue Cogentin 0.5 mg PO Q12 hr -Medicine consult appreciated -Disposition planning Estimated Date of D/C: 10/22/16
[2016-10-18] MEDS ORDERED: Pantoprazole 40 mg EC Tab PO SCH (17:00)
[2016-10-18] MEDS ORDERED: Pantoprazole 40 mg EC Tab PO STA (17:28)
--- NOTE | 2016-10-18 19:27 | CP.PCM.PN ---
Subjective - Date & Time of Evaluation Date of Evaluation: 10/18/16 Time of Evaluation: 19:20 - Subjective Subjective: Platepharesis ordered by mistake but computer wouldn't let me cancel it. Patient do not need platelet transfusion. Objective - Vital Signs/Intake and Output Vital Signs (last 24 hours): Temp Pulse Resp BP Pulse Ox 97.1 F L 71 19 117/60 91 L 10/18/16 16:40 10/18/16 16:40 10/18/16 16:40 10/18/16 16:40 10/11/16 09:49 - Medications Medications: Current Medications Acetaminophen (Tylenol 325mg Tab) 650 mg PO Q4 PRN PRN Reason: Pain, moderate (4-7) Last Admin: 10/16/16 01:37 Dose: 650 mg Al Hydrox/Mg Hydrox/Simethicone (Maalox Plus 30 Ml) 30 ml PO Q4 PRN PRN Reason: Dyspepsia Benztropine Mesylate (Cogentin) 0.5 mg PO Q12 [facility] Last Admin: 10/18/16 08:50 Dose: 0.5 mg Bismuth Subsalicylate (Pepto-Bismol) 524 mg PO Q4 PRN PRN Reason: Diarrhea Fluoxetine HCl (Prozac) 20 mg PO DAILY [facility] Last Admin: 10/18/16 08:50 Dose: 20 mg Levothyroxine Sodium (Synthroid) 125 mcg PO ACB [facility] Last Admin: 10/18/16 08:50 Dose: 125 mcg Lisinopril (Zestril) 20 mg PO DAILY [facility] Last Admin: 10/18/16 08:51 Dose: 20 mg Lorazepam (Ativan) 0.5 mg PO HS PRN PRN Reason: Insomnia Stop: 10/23/16 12:35 Lorazepam (Ativan) 0.5 mg PO Q6 PRN PRN Reason: Anixety/Agitation Stop: 10/23/16 12:35 Magnesium Hydroxide (Milk Of Magnesia) 30 ml PO HS PRN PRN Reason: Constipation Olanzapine (Zyprexa) 20 mg PO HS [facility] Last Admin: 10/17/16 21:15 Dose: 20 mg Ondansetron HCl (Zofran Inj) 4 mg IVP Q6 PRN PRN Reason: Nausea/Vomiting Last Admin: 10/16/16 23:39 Dose: 4 mg Pantoprazole Sodium (Protonix Ec Tab) 40 mg PO DAILY [facility] - Labs Labs: 10/17/16 07:00 10/17/16 07:00
--- NOTE | 2016-10-19 07:52 | PCM.PYCHPN ---
Psychiatric Progress Note - Psychiatric Progress Note Patient seen today, length of contact: Patient evaluated, case discussed with team, chart reviewed, 35 min Patient Chief Complaint: "I'm okay" Problems Identified/Issues Discussed: Patient is more alert and starting to improve clinically. She is bringing up delusional content less often and seems less pressured by her delusions. She continues to have poor insight. She denies AH/VH/SI/HI. Medication Change: No Medical Record Reviewed: Yes Mental Status Examination - Cognitive Function Orientation: Person, Place, Situation, Time Memory: Impaired Attention: Poor Concentration: Poor Association: Loose Fund of Knowledge: Poor Decription of patient's judgement and insights: Poor insight/judgment - Mood Mood: Anxious - Affect Affect: Constricted - Speech Speech: Soft - Formal Thought Process Formal Thought Process: Delusions, Loosening of associations Psychotic Thoughts and Behaviors: +Less Delusions - Suicidal Ideation Suicidal Ideation: No - Homicidal Ideation Homicidal Ideation: No Goal/Treatment Plan - Goal/Treatment Plan Need for Continued Stay: Remain at risks for inpatient hospitalization, Discharge may exacerbated symptoms, Severe functional impairment Progress Toward Problem(s) and Goals/Treatment Plan: Bipolar Disorder w/ psychotic features; patient continues to be delusional w/ poor insight, but she is less pressured by these delusions and seems to be improving clinically. Patient finished tx for UTI. -Continue Prozac 20 mg PO Daily -Continue Zyprexa 20 mg PO HS -POA in agreement with medications modifications as clinically indicated -Continue Cogentin 0.5 mg PO Q12 hr -Medicine consult appreciated -Disposition planning Estimated Date of D/C: 10/22/16 - Smoking Cessation Smoking Cessation Initiated: No Reason for not providing: Not indicated
[2016-10-19] MEDS: Pantoprazole 40 mg EC Tab PO SCH (08:24)
[2016-10-19] MEDS: Levothyroxine 125 MCG TAB PO SCH (08:24)
[2016-10-19 11:01] LABS: BASO % 0.5 % (0.0-2.0); EOS # 0.1 K/uL (0.0-0.7); EOS % 2.4 % (0.0-4.0); LYMPH # 0.9 K/uL (1.0-4.3); LYMPH % 16.8 % (20.0-40.0); MEAN CELL VOLUME 87.6 fl (81.0-99.0); MEAN CORPUSCULAR HEMOGLOBIN 28.3 pg (27.0-31.0); MEAN CORPUSCULAR HGB CONC 32.3 g/dL (33.0-37.0); MEAN PLATELET VOLUME 8.1 fl (7.2-11.7); MONO # 0.5 K/uL (0.0-0.8); MONO % 8.9 % (0.0-10.0); NEUT # 3.8 K/uL (1.8-7.0); NEUT % 71.4 % (50.0-75.0); NRBC % 0.1 % (0.0-0.0); RBC 4.24 Mil/uL (3.80-5.20); RED CELL DISTRIBUTION WIDTH 15.2 % (11.5-14.5); WHITE BLOOD COUNT 5.3 K/uL (4.8-10.8)
--- NOTE | 2016-10-20 08:39 | PCM.PYCHPN ---
Psychiatric Progress Note - Psychiatric Progress Note Patient seen today, length of contact: Patient evaluated, case discussed with team, chart reviewed, 35 min Patient Chief Complaint: "I'm okay" Problems Identified/Issues Discussed: Patient continues to report depressive symptoms due to her delusions that she has done something seriously harmful in the past. She continues to have poor insight. She denies AH/VH/SI/HI. Diagnostic Results: 10/15/16- VPA 39.6 Medication Change: Yes (Increase Prozac to 40 mg PO Daily) Medical Record Reviewed: Yes Mental Status Examination - Cognitive Function Orientation: Person, Place, Situation, Time Memory: Impaired Attention: Poor Concentration: Poor Association: Loose Fund of Knowledge: Poor Decription of patient's judgement and insights: Poor insight/judgment - Mood Mood: Anxious - Affect Affect: Constricted - Speech Speech: Soft - Formal Thought Process Formal Thought Process: Delusions, Loosening of associations Psychotic Thoughts and Behaviors: +Less Delusions - Suicidal Ideation Suicidal Ideation: No - Homicidal Ideation Homicidal Ideation: No Goal/Treatment Plan - Goal/Treatment Plan Need for Continued Stay: Remain at risks for inpatient hospitalization, Discharge may exacerbated symptoms, Severe functional impairment Progress Toward Problem(s) and Goals/Treatment Plan: Bipolar Disorder w/ psychotic features; patient continues to be delusional w/ poor insight. Patient finished tx for UTI. -Increase Prozac to 40 mg PO Daily -Continue Zyprexa 20 mg PO HS -POA in agreement with medications modifications as clinically indicated -Continue Cogentin 0.5 mg PO Q12 hr -Medicine consult appreciated -Disposition planning Estimated Date of D/C: 10/23/16
[2016-10-20] MEDS: Levothyroxine 125 MCG TAB PO SCH (08:55)
[2016-10-20] MEDS: Pantoprazole 40 mg EC Tab PO SCH (08:55)
[2016-10-21] MEDS: Pantoprazole 40 mg EC Tab PO SCH (08:34)
[2016-10-21] MEDS: Levothyroxine 125 MCG TAB PO SCH (08:34)
--- NOTE | 2016-10-21 09:35 | PCM.PYCHPN ---
Psychiatric Progress Note - Psychiatric Progress Note Patient seen today, length of contact: Patient evaluated, case discussed with team, chart reviewed, 35 min Patient Chief Complaint: "I'm okay" Problems Identified/Issues Discussed: Patient is less delusional, she has brighter affect and is more conversive with staff and peers. She denies AH/VH/SI/HI. Diagnostic Results: 10/15/16- VPA 39.6 Medication Change: No Medical Record Reviewed: Yes Mental Status Examination - Cognitive Function Orientation: Person, Place, Situation, Time Memory: Impaired Attention: Poor Concentration: Poor Association: Loose Fund of Knowledge: Poor Decription of patient's judgement and insights: Poor insight/judgment - Mood Mood: Anxious - Affect Affect: Broad - Speech Speech: Soft - Formal Thought Process Formal Thought Process: Delusions, Loosening of associations Psychotic Thoughts and Behaviors: +Less Delusions - Suicidal Ideation Suicidal Ideation: No - Homicidal Ideation Homicidal Ideation: No Goal/Treatment Plan - Goal/Treatment Plan Need for Continued Stay: Remain at risks for inpatient hospitalization, Discharge may exacerbated symptoms, Severe functional impairment Progress Toward Problem(s) and Goals/Treatment Plan: Bipolar Disorder w/ psychotic features; patient is starting to improve clinically. Patient finished tx for UTI. -Continue Prozac 40 mg PO Daily -Continue Zyprexa 20 mg PO HS -POA in agreement with medications modifications as clinically indicated -Continue Cogentin 0.5 mg PO Q12 hr -Medicine consult appreciated -Disposition planning Estimated Date of D/C: 10/23/16
--- NOTE | 2016-10-22 08:27 | PCM.PYCHPN ---
Psychiatric Progress Note - Psychiatric Progress Note Patient seen today, length of contact: Patient evaluated, case discussed with team, chart reviewed, 35 min Patient Chief Complaint: "I'm okay" Problems Identified/Issues Discussed: Patient continues to improve clinically, she is less delusional, has brighter affect and is more conversive with staff and peers. She denies AH/VH/SI/HI. Diagnostic Results: 10/15/16- VPA 39.6 Medication Change: No Medical Record Reviewed: Yes Mental Status Examination - Cognitive Function Orientation: Person, Place, Situation, Time Memory: Impaired Attention: Poor Concentration: Poor Association: Loose Fund of Knowledge: Poor Decription of patient's judgement and insights: Poor insight/judgment - Mood Mood: Anxious - Affect Affect: Broad - Speech Speech: Soft - Formal Thought Process Formal Thought Process: Loosening of associations Psychotic Thoughts and Behaviors: +Less Delusions - Suicidal Ideation Suicidal Ideation: No - Homicidal Ideation Homicidal Ideation: No Goal/Treatment Plan - Goal/Treatment Plan Need for Continued Stay: Remain at risks for inpatient hospitalization, Discharge may exacerbated symptoms, Severe functional impairment Progress Toward Problem(s) and Goals/Treatment Plan: Bipolar Disorder w/ psychotic features; patient is starting to improve clinically. Patient finished tx for UTI. -Continue Prozac 40 mg PO Daily -Continue Zyprexa 20 mg PO HS -POA in agreement with medications modifications as clinically indicated -Continue Cogentin 0.5 mg PO Q12 hr -Medicine consult appreciated -Disposition planning Estimated Date of D/C: 10/24/16
[2016-10-22] MEDS: Pantoprazole 40 mg EC Tab PO SCH (08:53)
[2016-10-22] MEDS: Levothyroxine 125 MCG TAB PO SCH (08:54)
[2016-10-23] MEDS: Levothyroxine 125 MCG TAB PO SCH (08:42)
[2016-10-23] MEDS: Pantoprazole 40 mg EC Tab PO SCH (08:42)
--- NOTE | 2016-10-23 10:38 | PCM.PYCHPN ---
Psychiatric Progress Note - Psychiatric Progress Note Patient seen today, length of contact: Patient evaluated, case discussed with team, chart reviewed, 35 min Patient Chief Complaint: "I'm okay" Problems Identified/Issues Discussed: Patient is reporting feeling down today because she continues to have chronic delusions that she has done bad things in the past, but she is less pressured about speaking about these delusions. She denies AH/VH/SI/HI. Diagnostic Results: 10/15/16- VPA 39.6 Medication Change: No Medical Record Reviewed: Yes Mental Status Examination - Cognitive Function Orientation: Person, Place, Situation, Time Memory: Impaired Attention: Poor Concentration: Poor Association: Loose Fund of Knowledge: Poor Decription of patient's judgement and insights: Poor insight/judgment - Mood Mood: Anxious - Affect Affect: Broad - Speech Speech: Soft - Formal Thought Process Formal Thought Process: Loosening of associations Psychotic Thoughts and Behaviors: +Less Delusions - Suicidal Ideation Suicidal Ideation: No - Homicidal Ideation Homicidal Ideation: No Goal/Treatment Plan - Goal/Treatment Plan Need for Continued Stay: Remain at risks for inpatient hospitalization, Discharge may exacerbated symptoms, Severe functional impairment Progress Toward Problem(s) and Goals/Treatment Plan: Bipolar Disorder w/ psychotic features; patient is starting to improve clinically. Patient finished tx for UTI. -Continue Prozac 40 mg PO Daily -Continue Zyprexa 20 mg PO HS -POA in agreement with medications modifications as clinically indicated -Continue Cogentin 0.5 mg PO Q12 hr -Medicine consult appreciated -Disposition planning Estimated Date of D/C: 10/25/16
[2016-10-24 06:32] VITALS: O2SAT 99
--- NOTE | 2016-10-24 08:38 | PCM.PYCHPN ---
Psychiatric Progress Note - Psychiatric Progress Note Patient seen today, length of contact: Patient evaluated, case discussed with team, chart reviewed, 35 min Patient Chief Complaint: "I'm okay" Problems Identified/Issues Discussed: Patient is calm, cooperative and pleasant. She does not express delusional content unless she is specifically asked and is vague about a belief she did something bad in the past. Patient seems to be at her baseline of functioning. She denies AH/VH/SI/HI. Medication Change: No Medical Record Reviewed: Yes Mental Status Examination - Cognitive Function Orientation: Person, Place, Situation, Time Memory: Impaired Attention: Poor Concentration: Poor Association: Loose Fund of Knowledge: Poor Decription of patient's judgement and insights: Poor insight/judgment due to chronic dementia - Mood Mood: Anxious - Affect Affect: Broad - Speech Speech: Soft - Formal Thought Process Formal Thought Process: Loosening of associations Psychotic Thoughts and Behaviors: +Less Delusions - Suicidal Ideation Suicidal Ideation: No - Homicidal Ideation Homicidal Ideation: No Goal/Treatment Plan - Goal/Treatment Plan Progress Toward Problem(s) and Goals/Treatment Plan: Bipolar Disorder w/ psychotic features; patient appears to be at her baseline of functioning. Patient finished tx for UTI. Will refer [facility]. -Continue Prozac 40 mg PO Daily -Continue Zyprexa 20 mg PO HS -POA in agreement with medications modifications as clinically indicated -Continue Cogentin 0.5 mg PO Q12 hr -Medicine consult appreciated -Disposition planning Estimated Date of D/C: 10/25/16
[2016-10-24] MEDS: Levothyroxine 125 MCG TAB PO SCH (09:03)
[2016-10-24] MEDS: Pantoprazole 40 mg EC Tab PO SCH (09:04)
[2016-10-25 05:51] VITALS: BP 109/78; PULSE 85; RESP 18; TEMP 97.3
[2016-10-25] MEDS: Levothyroxine 125 MCG TAB PO SCH (09:01)
--- NOTE | 2016-10-25 09:40 | PCM.PYCHDC ---
Mental Status Examination - Mental Status Examination Orientation: Person, Place, Situation Memory: Impaired Mood: Neutral Affect: Broad Speech: Appropriate Attention: Poor Concentration: Poor Association: Loose Fund of Knowledge: Poor Formal Thought Process: Delusions (Chronic delusions at baseline) Description of patient's judgement and insight: Poor insight/judgment due to chronic dementia Psychotic Thoughts and Behaviors: chronic mild delusions Suicidal Ideation: No Current Homicidal Ideation?: No Discharge Summary - Discharge Note Reason for Hospitalization: Patient is a poor historian, history obtained from the chart. HPI: 76 yo , , female referred to ED by [facility]. Patient expressed various delusions including that she killed her babies and that someone is going to kill her now. Pt appeared to be somewhat depressed. Pt denied SI/HI. Pt appeared to be delusional, but denied A/V/T hallucinations. Pt is oriented x3. precision layout worker spoke with Father Mann, , for collateral information. According to Father Mann, pt has been admitted in the past for the same incident , and her concern is primarily about her babies. Father Mann has known her for at least 10 years. Pts 2 years ago from Alzheimer s disease. Pts brothers currently lives in [place] and she has no communication with them. Pt has a Psychiatric history, and she has battled with Depression. Pt was under the care of Dr. Perez in the past. Pt has been living in an Assisted Living for the past year. Pt has been hospitalized at least 4-5x. PPHx: Pt was hospitalized in [facility] at least 4x between [id number]. Current medications: Benztropine 0.5 mg 2x a day, Fluoxetine 20 mg 1x a day, and Zyprexa 10 mg at bedtime. H/o bipolar disorder as per the chart. PMHx: Pt has history of hypothyroidism, and has an ulcer in her esophagus. SHx: , +Bachelor's Degree, NO drugs/ etoh/ cig. All: Codeine Consultations:: List each consultation separately and include: 1. Reason for request. 2. Findings. 3. Follow-up Summary of Hospital Course include:: 1. Description of specific treatment plan utilized for patients during their course of treatmen. 2. Summarize the time- course for resolution of acute symptoms and/or regressed behaviors. 3. Describe issues identified and worked on during hospitalization. 4. Describe medication utilized. 5. Describe medical problems identified and treated. 6. Reassessment of suicide risk Summary of Hospital Course: Patient admitted to the hospital. She was stabilized on Prozac 40 mg PO Daily and Zyprexa 20 mg PO HS. She had a retrial of Depakote, but this was discontinued because it caused the patient to be too sedated. She is now calm, w/ brighter affect and improved psychosis. She has mild chronic delusions, but this seems to be the patient's baseline. - Final Diagnosis (DSM 5) Condition upon Discharge: STABLE DSM 5: Bipolar Disorder Disposition: HOME/ ROUTINE Follow-up Treatment Plan: Bipolar Disorder w/ psychotic features; patient appears to be at her baseline of functioning. Patient finished tx for UTI. Patient to be discharged back to the [place]. -Continue Prozac 40 mg PO Daily -Continue Zyprexa 20 mg PO HS -Continue Cogentin 0.5 mg PO Q12 hr - Smoking Cessation Smoking Cessation Medication prescribed: No Reason for not providing: Not indicated - Antipsychotic Medications Pt discharged on 2 or more routine antipsychotic medications: No
== END 2016-10-25 13:00 | disposition home or self-care (01) | DRG 885 ==
LOC: H.ER 00:53 → H.EROBSV 01:45 → OBSVTOIN 11:18 → H.ERHOLD 11:18 → H.STEP 12:16
PROVIDERS: ADMIT Psychiatry & Neurology Psychiatry; ATTEND Psychiatry & Neurology Psychiatry
DX: F31.5 Bipolar disorder, current episode depressed, severe, with psychotic features (principal); K92.0 Hematemesis; F03.90 Unspecified dementia, unspecified severity, without behavioral disturbance, psychotic disturbance, mood disturbance, and anxiety; E86.0 Dehydration; N39.0 Urinary tract infection, site not specified; I10 Essential (primary) hypertension; E78.5 Hyperlipidemia, unspecified; E03.9 Hypothyroidism, unspecified

== ENCOUNTER 2016-11-13 10:52 | Inpatient (IN) | payer MEDICARE ==
[2016-11-13 11:06] VITALS: BMI 25.8
[2016-11-13 11:41] LABS: BASO % 0.5 % (0.0-2.0); EOS # 0.2 K/uL (0.0-0.7); EOS % 2.6 % (0.0-4.0); LYMPH # 0.7 K/uL (1.0-4.3); LYMPH % 8.3 % (20.0-40.0); MEAN CELL VOLUME 86.2 fl (81.0-99.0); MEAN CORPUSCULAR HEMOGLOBIN 27.2 pg (27.0-31.0); MEAN CORPUSCULAR HGB CONC 31.6 g/dL (33.0-37.0); MONO # 0.6 K/uL (0.0-0.8); MONO % 6.9 % (0.0-10.0); NEUT # 6.7 K/uL (1.8-7.0); NEUT % 81.7 % (50.0-75.0); PLATELET COUNT 230 K/uL (130-400); RED CELL DISTRIBUTION WIDTH 15.3 % (11.5-14.5); WHITE BLOOD COUNT 8.2 K/uL (4.8-10.8)
[2016-11-13 11:54] LABS: PARTIAL THROMBOPLASTIN TIME 44.8 Seconds (25.6-37.1)
[2016-11-13 12:08] LABS: ALB/GLOB RATIO 1.3 (1.0-2.1); ALCOHOL SERUM < 10 mg/dl (0-10); ALKALINE PHOSPHATASE 130 U/L (38-126); ALT/SGPT 33 U/L (9-52); AST/SGOT 26 U/L (14-36); BILIRUBIN,TOTAL 0.5 mg/dl (0.2-1.3); BLOOD UREA NITROGEN 27 mg/dl (7-17); CALCIUM 10.1 mg/dL (8.4-10.2); CARBON DIOXIDE 22 mmol/L (22-30); CHLORIDE 104 mmol/L (98-107); GFR AFRICAN-AMERICAN > 60; GLUCOSE,RANDOM 146 mg/dL (65-105); POTASSIUM 4.5 MMOL/L (3.6-5.0); SODIUM 139 mmol/l (132-148); TOTAL PROTEIN 6.9 G/DL (6.3-8.2)
--- NOTE | 2016-11-13 12:36 | RAD ---
PROCEDURE: Radiographs of the chest and abdomen HISTORY: abd pain pain COMPARISON: No prior. TECHNIQUE: AP radiograph of the chest, with supine radiograph of the abdomen. Left lateral decubitus abdomen also included. FINDINGS: CHEST: Lungs: Clear. Cardiovascular: Normal size heart. No pulmonary vascular congestion. Pleura: No pleural fluid. No pneumothorax. Other findings: None. ABDOMEN AND PELVIS: Bowel: Unremarkable bowel gas pattern. No evidence of mechanical obstruction. Bones: Unremarkable. Other findings: No free intraperitoneal air. Surgical clips noted right upper quadrant presumably status post cholecystectomy. IMPRESSION: Unremarkable examination of chest and abdomen. No free intraperitoneal air. No bowel obstruction.
[2016-11-13 13:22] LABS: RBC URINE 23 /hpf (0-3); URINE BACTERIA OCC (<OCC); URINE BILIRUBIN NEGATIVE (NEGATIVE); URINE BLOOD SMALL (NEGATIVE); URINE COLOR YELLOW (YELLOW); URINE GLUCOSE (UA) NEG (Normal); URINE KETONE NEGATIVE (NEGATIVE); URINE LEUKOCYTE ESTERASE LARGE Leu/uL (Negative); URINE PROTEIN 30 mg/dL (NEGATIVE); URINE UROBILINOGEN 0.2-1.0 mg/dL (0.2-1.0); WBC CLUMPS MOD /hpf; WBC URINE 970 /hpf (0-5)
[2016-11-13 13:30] LABS: EOSINOPHIL 1 % (0-7); NEUTROPHIL 85 % (42-75); TOTAL CELLS COUNTED 100
[2016-11-13] MEDS ORDERED: Sodium Chloride 0.9% 1,000 ML IV SCH (13:30)
[2016-11-13 13:48] LABS: VENOUS BLOOD GAS BASE EXCESS 1.6 mmol/L (0.0-2.0); VENOUS BLOOD GAS PCO2 48 mmHg (40-60); VENOUS BLOOD PH 7.37 (7.32-7.43)
[2016-11-13] MEDS ORDERED: cefTRIAXone (Rocephin) 1 gm Inj ONE (13:59)
--- NOTE | 2016-11-13 14:39 | ED PDOC ---
HPI: General Adult Time Seen by Provider: 11/13/16 11:03 Chief Complaint (Nursing): Syncope Chief Complaint (Provider): syncope History Per: Patient, EMS History/Exam Limitations: no limitations Additional History Per: Patient Additional Complaint(s): 76yo D in ED from [facility] sent to ED from possible syncopal episode while coming from the dining area. PT was d/.c from [facility] with increase to Prozac 40 mg PO Daily and Zyprexa 20 mg PO HS. Pt also complains of food bolus in epigastric area without radiation to back negative for LOC, incontinence of urine/bowel, slurred speech,chest pain. PMD: [facility] (does not admit to [facility]) Past Medical History Reviewed: Historical Data, Nursing Documentation, Vital Signs Vital Signs: Last Vital Signs Temp 98.3 F 11/13/16 11:06 Pulse 98 H 11/13/16 12:59 Resp 19 11/13/16 12:59 BP 127/65 11/13/16 11:06 Pulse Ox 98 11/13/16 14:48 - Medical History PMH: Anxiety, Bipolar Disorder, Depression, HTN, Hypercholesterolemia, Hyperlipidemia, Hypothyroidism, Kidney Stones, Chronic Kidney Disease Denies: Alzheimer's Disease, Anemia, Arthritis, Asthma, Bronchitis, Cardia Arrhythmia, CHF, COPD, Crohn's Disease, Dementia, Diabetes, Diverticulitis, Emphysema, Fibromyalgia, Fractures, Gastrointestinal Ulcer, Gall Bladder Disease , Hepatitis, HIV, Hyperthyroidism, Migraine, Mitral Valve Prolapse, Osteoporosis , Pancreatitis, Paranoia, Parkinson's Disease, Peripheral Edema, Pneumonia, Post Traumatic Stress Disorder, Rheumatoid Arthritis, Schizophrenia, Seizures, Sickle Cell Disease, Sexually Transmitted Disease, Sleep Apnea, TIA - Surgical History Surgical History: Appendectomy, Cholecystectomy, Coronary Stent Denies: Pacemaker - Family History Family History: States: No Known Family Hx - Immunization History Hx Tetanus Toxoid Vaccination: No - Home Medications Home Medications: Ambulatory Orders Medication Instructions Recorded Benztropine [Cogentin] 0.5 mg PO Q12 #60 tab 10/25/16 FLUoxetine [Prozac] 40 mg PO DAILY cap 10/25/16 Levothyroxine [Synthroid] 125 mcg PO ACB #30 tab 10/25/16 Lisinopril [Zestril] 20 mg PO DAILY tab 10/25/16 OLANZapine [Zyprexa] 20 mg PO HS tab 10/25/16 Pantoprazole [Protonix EC Tab] 40 mg PO DAILY ect 10/25/16 - Allergies Allergies/Adverse Reactions: Allergies Allergy/AdvReac Type Severity Reaction Status Date / Time codeine Allergy RASH Verified 04/05/15 06:07 Review of Systems ROS Statement: Except As Marked, All Systems Reviewed And Found Negative Constitutional: Positive for: Weakness. Negative for: Fever, Chills, Malaise Gastrointestinal: Positive for: Abdominal Pain. Negative for: Nausea, Vomiting Genitourinary Female: Negative for: Dysuria, Hematuria, Vaginal Discharge, Vaginal Bleeding, Pelvic Pain Physical Exam - Reviewed Nursing Documentation Reviewed: Yes Vital Signs Reviewed: Yes - Physical Exam Appears: Positive for: Well, Non-toxic, No Acute Distress Skin: Positive for: Normal Color, Warm, DRY Cardiovascular/Chest: Positive for: Regular Rate, Rhythm Respiratory: Positive for: CNT, Normal Breath Sounds Gastrointestinal/Abdominal: Positive for: Normal Exam, Bowel Sounds, Soft. Negative for: Tenderness Back: Positive for: Normal Inspection. Negative for: L CVA Tenderness, R CVA Tenderness Extremity: Positive for: Normal ROM Neurologic/Psych: Positive for: Alert, Oriented - Laboratory Results Result Diagrams: 11/13/16 11:28 11/13/16 11:28 - ECG ECG Rhythm: Positive for: Normal ST Segment, Sinus Rhythm Interpretation Of Abn EKG: pronlonged QT 394/497 O2 Sat by Pulse Oximetry: 98 - Radiology X-Ray: Interpreted by Me (no obstruction/no PNA) - Progress ED Course And Treament: pt with elevated WBC in urine and luek-indicating UTI . possible cause of weakness. otherwise unremarkable labs. Denisa ALLEN made awra p[t given Rocophin IV. Medical Decision Making Medical Decision Making: pt will be admitted to [facility] for UTI and weakness. Disposition - Clinical Impression Clinical Impression: UTI (urinary tract infection), Weakness - Patient ED Disposition Is Patient to be Admitted: Yes - Disposition Disposition Time: 14:54 Condition: STABLE Instructions: Weakness (ED) Forms: [facility] (T[place]ik) - Pt Status Changed To: Hospital Disposition Of: Inpatient - Admit Certification Admit to Inpatient:: After my assessment, the patient will require hospitalization for at least two midnights. This is because of the severity of symptoms shown, intensity of services needed, and/or the medical risk in this patient being treated as an outpatient. - POA Present On Arrival: None
[2016-11-13] MEDS ORDERED: Dextrose 5%/0.45% NS 1,000 ML IV SCH (17:45)
--- NOTE | 2016-11-13 23:20 | CARD ---
APPROVED REPORT EKG Measurement Heart [id number] <Conclusion> Normal sinus rhythm Prolonged QT Abnormal ECG
[2016-11-14] MEDS: Levothyroxine 125 MCG TAB PO SCH (06:41)
[2016-11-14] MEDS: Enoxaparin 40 mg Syringe SC SCH (09:26)
[2016-11-14] MEDS: Pantoprazole 40 mg EC Tab PO SCH (09:26)
--- NOTE | 2016-11-14 21:17 | HP ---
HISTORY OF PRESENT ILLNESS: Mrs. Joshua is a 76-year-old female who resides at [facility] assisted living. She was transferred yesterday after a syncopal episode and generalized weakness. She has a history of psychiatric disorders and has recently been in [facility] and is on multiple antipsychotic medication. She also complains of difficulty swallowing food and was found to have a urinary tract infection and urinary retention. PAST MEDICAL HISTORY: Remarkable for the above with bipolar disorder, depression, hypertension, hyperlipidemia, hypothyroidism, kidney stones, and chronic kidney disease. SOCIAL HISTORY: She does not drink, does smoke. REVIEW OF SYSTEMS: Essentially remarkable for difficulty swallowing for several weeks to months. PHYSICAL EXAMINATION: GENERAL: The patient is alert, appears oriented this morning x3. VITAL SIGNS: Blood pressure 115/75, pulse of 86, respiratory rate 18. She is afebrile. O2 sat 96% on room air. SKIN: Shows fair turgor. HEENT: Pupils are equal and reactive to light and accommodation. Mouth shows fair hygiene. JVP flat. LUNGS: Clear. HEART: Regular. No murmurs or gallop. ABDOMEN: Soft, nontender. No organomegaly. EXTREMITIES: Shows no edema or cyanosis. CENTRAL NERVOUS SYSTEM: Grossly unremarkable. LABORATORY DATA: Remarkable for WBC of 8.2, hemoglobin 12.6, platelet count of 230,000. Sodium 139, potassium 4.5, BUN of 27, creatinine 0.9. Serum glucose 158. Urinalysis remarkable for moderate WBC, occasional bacteria and rare yeast. IMPRESSION: Generalized malaise secondary to urinary tract infection and multiple antipsychotic medications, dysphagia, questionable etiology, and history of psychiatric problems. PLAN: Hold most antipsychotic medication, IV antibiotics, speech evaluation for swallow. We will continue therapy as ordered. Jamal Forrest MD
--- NOTE | 2016-11-15 06:45 | PQF GENQUE ---
This form is a permanent part of the medical record 11/15/16 Dr. Forrest, Progress note of nursing on 11/14 notes " no urine noted all night even with IVF maintained. Bladder scan performed with 668 ml of urine noted. Orders obtained from Dr Forrest for straight catheterization". Would you please clarify if there is an associated diagnosis or not to go along with the inability to void: Clarification of your documentation is requested to better reflect the severity of illness and intensity of treatment of your patient. PHYSICIAN'S RESPONSE [x] Urinary retention [] Other Please specify [] No associated diagnosis [] Unable to determine Based on your medical judgment of the clinical indicators outlined above please clarify the following: [] Practitioner response --urinary retention [] If unable to determine, please check the box, sign and date. Present On Admission (POA) Indicator: [x] Present at the time of admission [] Not present at the time of admission [] Clinically Undetermined In responding to this query, please exercise your independent professional judgment. The fact that a question is asked does not imply that any particular answer is desired or expected. Thank you for your clarification on this documentation. If you have any questions please call:extension [phone] * Thank you, Amina Landa RN CDMP MTDD
[2016-11-15] MEDS: Levothyroxine 125 MCG TAB PO SCH (07:17)
--- NOTE | 2016-11-15 08:16 | CP.PCM.PN ---
Subjective - Date & Time of Evaluation Date of Evaluation: 11/15/16 Time of Evaluation: 08:16 - Subjective Subjective: MORE ALERT AND ORIENTED DYSPHAGIA AND DIZZINESS IMPROVED URINARY RETENTION PERSISTS Objective - Vital Signs/Intake and Output Vital Signs (last 24 hours): Temp Pulse Resp BP Pulse Ox 97.4 F L 71 19 96/66 L 95 11/15/16 00:41 11/15/16 00:41 11/15/16 00:41 11/15/16 00:41 11/15/16 00:41 - Medications Medications: Current Medications Enoxaparin Sodium (Lovenox) 40 mg SC DAILY [facility] PRN Reason: Protocol Last Admin: 11/14/16 09:26 Dose: 40 mg Ceftriaxone Sodium 1 gm/ (Sodium Chloride) 100 mls @ 100 mls/hr IVPB DAILY [facility] Last Admin: 11/14/16 12:51 Dose: 100 mls/hr Levothyroxine Sodium (Synthroid) 125 mcg PO ACB [facility] Last Admin: 11/15/16 07:17 Dose: 125 mcg Lisinopril (Zestril) 20 mg PO DAILY [facility] Last Admin: 11/14/16 09:27 Dose: 20 mg Pantoprazole Sodium (Protonix Ec Tab) 40 mg PO DAILY [facility] Last Admin: 11/14/16 09:26 Dose: 40 mg - Labs Labs: PT 11.9 Seconds (9.8-13.1) 11/13/16 11:28 INR 1.2 (0.9-1.2) 11/13/16 11:28 APTT 44.8 Seconds (25.6-37.1) H 11/13/16 11:28 - Constitutional Appears: No Acute Distress - Head Exam Head Exam: ATRAUMATIC, NORMAL INSPECTION, NORMOCEPHALIC - Eye Exam Eye Exam: EOMI, Normal appearance, PERRL Pupil Exam: NORMAL ACCOMODATION, PERRL - ENT Exam ENT Exam: Mucous Membranes Moist, Normal Exam - Neck Exam Neck Exam: Full ROM, Normal Inspection. absent: Lymphadenopathy - Respiratory Exam Respiratory Exam: Clear to Ausculation Bilateral, NORMAL BREATHING PATTERN - Cardiovascular Exam Cardiovascular Exam: REGULAR RHYTHM, +S1, +S2. absent: Murmur - GI/Abdominal Exam GI & Abdominal Exam: Soft, Normal Bowel Sounds. absent: Tenderness - Rectal Exam Rectal Exam: NORMAL INSPECTION - Extremities Exam Extremities Exam: Full ROM, Normal Capillary Refill, Normal Inspection. absent : Joint Swelling, Pedal Edema - Back Exam Back Exam: NORMAL INSPECTION - Neurological Exam Neurological Exam: Alert, Awake, CN II-XII Intact, Normal Gait, Oriented x3 - Psychiatric Exam Psychiatric exam: Normal Affect, Normal Mood - Skin Skin Exam: Dry, Intact, Normal Color, Warm Assessment and Plan - Assessment and Plan (Free Text) Assessment: UTI URINARY RETENTION DYSPHAGIA NEAR SYNCOPE DUE TO SIDE EFFECT OF DRUGS Plan: CONTINUE ANTIBIOTIC RX UROLOGY EVAL D/C TO ASSISTED LIVING IN AM IF CLEARED BY UROLOGY
[2016-11-15] MEDS: Enoxaparin 40 mg Syringe SC SCH (09:08)
[2016-11-15] MEDS: Pantoprazole 40 mg EC Tab PO SCH (09:09)
--- NOTE | 2016-11-15 22:17 | CON ---
COMPREHENSIVE UROLOGICAL CONSULTATION DATE: 11/15/2016 TIME OF CONSULTATION: 11:35 a.m. BRIEF HISTORY: The patient is a 76-year-old slightly obese white female, custodial resident at [facility], who was brought to [facility] Emergency Room and admitted for generalized weakness and was found to have a staphylococcal UTI during this admission and is currently on IV Rocephin. The patient was also found to be in urinary retention where she was straight cathetered with an initial residual of 900 mL and then she was voiding some urine during the day and had a second straight cathetered of the 450 mL, which seems to be improving on the IV Rocephin for treatment of her UTI. She is a poor historian with some dementia. She claims that she voids okay at the custodial. SOCIAL HISTORY: She has no history of alcohol use or tobacco use. ALLERGIES: NO KNOWN ALLERGIES TO ANY MEDICATIONS. PHYSICAL EXAMINATION GENERAL: She is a well-developed, well-nourished slightly obese white female. She is alert, question of orientation. VITAL SIGNS: Today, her temperature is 97.6, pulse rate is 82, blood pressure is 174/74, respiration rate is 20 and her O2 sat on room air is 96%. HEENT: Grossly within normal limits. NECK: Supple. Thyroid non palpable. ABDOMEN: Currently soft, not distended, no tender, no CVA tenderness, no suprapubic tenderness. EXTREMITIES: She seems to have some range of motion of her upper extremities, possibly decreased range of motion of her lower extremities. She is currently bed dependent. LABORATORY EVALUATION: On 11/13/2016 shows a CBC with a WBC count of 8.2, hemoglobin of 12.6, hematocrit of 40.0 and platelet count was 230,000. A coag profile shows a PT of 11.9, INR of 1.2 and PTT which is elevated at 44.8. The patient is currently on Lovenox prophylaxis. Her chem profile shows a sodium of 139, potassium 4.5, chloride 104, CO2 is 22, BUN and creatinine of 27 and 0.9 respectively with a GFR of 60. Glucose was 158. Calcium is 10.1. Magnesium was 2.0. Total bilirubin was 0.5. AST was 26, ALT was 33. Alk-phos was 130. Urinalysis done on 11/13/2016 showed color yellow,cloudy, was turbid, pH is 7.0, specific gravity 1.015, protein was 30, glucose negative, ketones negative, blood small, nitrite negative, bilirubin negative, urobilinogen 0.2 to 1.0, leukocyte esterase was large, 23 rbc's, moderate wbc's clumps, 970 wbc's with occasional bacteria, rare yeast. Indicating a possible UTI. Urine C&S was positive for Staphylococcus epidermidis resistant to Cipro and Levaquin, sensitive to erythromycin, sensitive to nitrofurantoin, sensitive to oxacillin, resistant to penicillin and sensitive to tetracycline and sensitive to vancomycin. The patient is currently on IV Rocephin. DIAGNOSTIC IMPRESSION: 1. Urinary retention. 2. Urinary tract infection, Staphylococcus epidermidis. PLAN: Just to repeat a urinalysis and urine culture and sensitivity. Continue straight catheterizing the patient and chart post void residuals. Juan Garcia MD MTDD
[2016-11-16 01:30] VITALS: RESP 18
[2016-11-16] MEDS: Levothyroxine 125 MCG TAB PO SCH (06:46)
[2016-11-16] MEDS: Pantoprazole 40 mg EC Tab PO SCH (08:38)
[2016-11-16] MEDS: Enoxaparin 40 mg Syringe SC SCH (08:38)
[2016-11-16 08:42] VITALS: BP 120/78; PULSE 65
[2016-11-16 08:43] VITALS: TEMP 97.7; O2SAT 95
--- NOTE | 2016-11-16 11:11 | CP.PCM.DIS ---
Provider - Provider Date of Admission: 11/13/16 14:46 Attending physician: Jamal Forrest MD Time Spent in preparation of Discharge (in minutes): 35 Diagnosis - Discharge Diagnosis (1) UTI (urinary tract infection) Status: Acute (2) Weakness Status: Acute (3) Bipolar 1 disorder, depressed Status: Acute (4) UTI (urinary tract infection) Status: Acute Hospital Course - Lab Results Lab Results: Micro Results 11/13/16 18:03 Blood Blood Culture - Preliminary NO GROWTH AFTER 48 HOURS Most Recent Lab Values WBC 8.2 K/uL (4.8-10.8) D 11/13/16 11:28 RBC 4.64 Mil/uL (3.80-5.20) 11/13/16 11:28 Hgb 12.6 g/dL (12.0-16.0) 11/13/16 11:28 Hct 40.0 % (34.0-47.0) 11/13/16 11:28 MCV 86.2 fl (81.0-99.0) 11/13/16 11:28 MCH 27.2 pg (27.0-31.0) 11/13/16 11:28 MCHC 31.6 g/dL (33.0-37.0) L 11/13/16 11:28 RDW 15.3 % (11.5-14.5) H 11/13/16 11:28 Plt Count 230 K/uL (130-400) 11/13/16 11:28 MPV 8.0 fl (7.2-11.7) 11/13/16 11:28 Neut % (Auto) 81.7 % (50.0-75.0) H 11/13/16 11:28 Lymph % (Auto) 8.3 % (20.0-40.0) L 11/13/16 11:28 Pickett % (Auto) 6.9 % (0.0-10.0) 11/13/16 11:28 Eos % (Auto) 2.6 % (0.0-4.0) 11/13/16 11:28 Baso % (Auto) 0.5 % (0.0-2.0) 11/13/16 11:28 Neut # 6.7 K/uL (1.8-7.0) 11/13/16 11:28 Lymph # 0.7 K/uL (1.0-4.3) L 11/13/16 11:28 Pickett # 0.6 K/uL (0.0-0.8) 11/13/16 11:28 Eos # 0.2 K/uL (0.0-0.7) 11/13/16 11:28 Baso # 0.0 K/uL (0.0-0.2) 11/13/16 11:28 Neutrophils % (Manual) 85 % (42-75) H 11/13/16 11:28 Lymphocytes % (Manual) 9 % (20-50) L 11/13/16 11:28 Monocytes % (Manual) 5 % (0-10) 11/13/16 11:28 Eosinophils % (Manual) 1 % (0-7) 11/13/16 11:28 Platelet Estimate Normal (NORMAL) 11/13/16 11:28 Anisocytosis (manual) Slight 11/13/16 11:28 Ovalocytes Slight 11/13/16 11:28 PT 11.9 Seconds (9.8-13.1) 11/13/16 11:28 INR 1.2 (0.9-1.2) 11/13/16 11:28 APTT 44.8 Seconds (25.6-37.1) H 11/13/16 11:28 pO2 22 mm/Hg (30-55) L 11/13/16 13:29 VBG pH 7.37 (7.32-7.43) 11/13/16 13:29 VBG pCO2 48 mmHg (40-60) 11/13/16 13:29 VBG HCO3 24.0 mmol/L 11/13/16 13:29 VBG Total CO2 29.2 mmol/L (22-28) H 11/13/16 13:29 VBG O2 Sat (Calc) 25.3 % (40-65) L 11/13/16 13:29 VBG Base Excess 1.6 mmol/L (0.0-2.0) 11/13/16 13:29 VBG Potassium 4.7 mmol/L (3.6-5.2) 11/13/16 13:29 Sodium 138.0 mmol/L (132-148) 11/13/16 13:29 Chloride 103.0 mmol/L (98-107) 11/13/16 13:29 Glucose 125 mg/dL (65-105) H 11/13/16 13:29 Lactate 1.7 mmol/L (0.7-2.1) 11/13/16 13:29 FiO2 21.0 % 11/13/16 13:29 Sodium 139 mmol/l (132-148) 11/13/16 11:28 Potassium 4.5 MMOL/L (3.6-5.0) 11/13/16 11:28 Chloride 104 mmol/L (98-107) 11/13/16 11:28 Carbon Dioxide 22 mmol/L (22-30) 11/13/16 11:28 Anion Gap 17 (10-20) 11/13/16 11:28 BUN 27 mg/dl (7-17) H 11/13/16 11:28 Creatinine 0.9 mg/dL (0.7-1.2) 11/13/16 11:28 Est GFR ( Amer) > 60 11/13/16 11:28 Est GFR (Non-Af Amer) > 60 11/13/16 11:28 POC Glucose (mg/dL) 158 mg/dL (65-110) H 11/13/16 11:10 Random Glucose 146 mg/dL (65-105) H 11/13/16 11:28 Calcium 10.1 mg/dL (8.4-10.2) 11/13/16 11:28 Magnesium 2.0 MG/DL (1.6-2.3) 11/13/16 11:28 Total Bilirubin 0.5 mg/dl (0.2-1.3) 11/13/16 11:28 AST 26 U/L (14-36) 11/13/16 11:28 ALT 33 U/L (9-52) 11/13/16 11:28 Alkaline Phosphatase 130 U/L (38-126) H 11/13/16 11:28 Ammonia < 9 umo/L (11-51) L 11/13/16 11:28 Troponin I 0.0470 ng/mL (0.00-0.120) 11/13/16 11:28 Total Protein 6.9 G/DL (6.3-8.2) 11/13/16 11:28 Albumin 4.0 g/dL (3.5-5.0) 11/13/16 11:28 Globulin 3.0 gm/dL (2.2-3.9) 11/13/16 11:28 Albumin/Globulin Ratio 1.3 (1.0-2.1) 11/13/16 11:28 Venous Blood Potassium 4.7 mmol/L (3.6-5.2) 11/13/16 13:29 Urine Color Yellow (YELLOW) 11/13/16 13:10 Urine Clarity Turbid (Clear) 11/13/16 13:10 Urine pH 7.0 (5.0-8.0) 11/13/16 13:10 Ur Specific Bunch 1.015 (1.003-1.030) 11/13/16 13:10 Urine Protein 30 mg/dL (NEGATIVE) 11/13/16 13:10 Urine Glucose (UA) Neg mg/dL (Normal) 11/13/16 13:10 Urine Ketones Negative mg/dL (NEGATIVE) 11/13/16 13:10 Urine Blood Small (NEGATIVE) 11/13/16 13:10 Urine Nitrate Negative (NEGATIVE) 11/13/16 13:10 Urine Bilirubin Negative (NEGATIVE) 11/13/16 13:10 Urine Urobilinogen 0.2-1.0 mg/dL (0.2-1.0) 11/13/16 13:10 Ur Leukocyte Esterase Large Shilpi/uL (Negative) 11/13/16 13:10 Urine RBC (Auto) 23 /hpf (0-3) H 11/13/16 13:10 Urine WBC Clumps (Auto) Mod /hpf (NONE) H 11/13/16 13:10 Urine Microscopic WBC 970 /hpf (0-5) H 11/13/16 13:10 Ur Squamous Epith Cells 4 /hpf (0-5) 11/13/16 13:10 Urine Bacteria Occ (<OCC) H 11/13/16 13:10 Urine Yeast (Budding) Rare /hpf (NEGATIVE) H 11/13/16 13:10 Alcohol, Quantitative < 10 mg/dl (0-10) 11/13/16 11:28 - Hospital Course Hospital Course: MORE AWAKE AND ALERT NO APPARENT DISTRESS VOIDED TODAY Discharge Exam - Head Exam Head Exam: ATRAUMATIC, NORMAL INSPECTION, NORMOCEPHALIC - Eye Exam Eye Exam: EOMI, Normal appearance, PERRL Pupil Exam: NORMAL ACCOMODATION, PERRL - GI/Abdominal Exam GI & Abdominal Exam: Normal Bowel Sounds - Rectal Exam Rectal Exam: NORMAL INSPECTION - Neurological Exam Neurological exam: Alert, CN II-XII Intact, Reflexes Normal - Psychiatric Exam Psychiatric exam: Normal Affect, Normal Mood - Skin Skin Exam: Dry, Intact, Normal Color, Warm Discharge Plan - Follow Up Plan Condition: STABLE Disposition: HOME/ ROUTINE Patient education suggested?: Yes Instructions: How To Wash Your Hands (GEN), Weakness (GEN) Additional Instructions: DISCHARGE TO [facility] TODAY ON PO ANTIBIOTICS
--- NOTE | 2016-11-16 16:19 | PN ---
DATE: 11/16/2016 TIME OF FOLLOWUP: Roughly 01:20 p.m. SUBJECTIVE: The patient is currently voiding urine on her own. She just recently voided 200 mL without any complaints. She is resting very comfortably at this time and has not required any straight catheters recently. Plan for this patient is just observation and watch out for any constipation as a cause of her voiding difficulty. PHYSICAL EXAMINATION: ABDOMEN: Today, her abdomen is soft, nondistended, nontender. No CVA tenderness. No suprapubic tenderness. DIAGNOSTIC IMPRESSION: Acute urinary retention, which maybe slowly resolving at this time. PLAN: Just observation. Juan Garcia MD
== END 2016-11-16 16:26 | DRG 690 ==
LOC: H.ER 10:52 → H.ERHOLD 14:46 → H.MEDSURG1 16:14
PROVIDERS: ADMIT Internal Medicine Pulmonary Disease; ATTEND Internal Medicine Pulmonary Disease
DX: N39.0 Urinary tract infection, site not specified (principal); B95.7 Other staphylococcus as the cause of diseases classified elsewhere; R13.10 Dysphagia, unspecified; R55 Syncope and collapse; I12.9 Hypertensive chronic kidney disease with stage 1 through stage 4 chronic kidney disease, or unspecified chronic kidney disease; E03.9 Hypothyroidism, unspecified; T43.505A Adverse effect of unspecified antipsychotics and neuroleptics, initial encounter; Z88.6 Allergy status to analgesic agent; N18.9 Chronic kidney disease, unspecified; E78.00 Pure hypercholesterolemia, unspecified; E78.5 Hyperlipidemia, unspecified; I25.10 Atherosclerotic heart disease of native coronary artery without angina pectoris; Z95.5 Presence of coronary angioplasty implant and graft; F31.9 Bipolar disorder, unspecified; R33.9 Retention of urine, unspecified; E66.9 Obesity, unspecified; Z68.25 Body mass index [BMI] 25.0-25.9, adult; R53.1 Weakness